=== PATIENT | female | born 1995 | race Caucasian/White ===

== ENCOUNTER 2016-09-10 20:44 | Emergency (ER) | payer MEDICAID ==
[~2016-09-10] VITALS: Ht 170.2 cm; Wt 59.0 kg
[2016-09-10 20:50] VITALS: BP 144/77; PULSE 77; RESP 17; TEMP 98.8; O2SAT 99
--- NOTE | 2016-09-10 20:50 | NUR ---
Patient triaged and placed in waiting room. VSS and patient appears in no acute distress at this time. Accompanied by friend, awaiting available bed, and MD notified of need for MSE.
--- NOTE | 2016-09-10 23:10 | NUR ---
PT IS AOX4, C/O GROIN PAIN JUST TODAY STATED BY THE PT WITH A PAIN SCALEE 8/10. ALSO PT STATED SHE HAD IT BEFORE AFTER SHE LIFTING WEIGHTS.
--- NOTE | 2016-09-10 23:12 | NUR ---
ER at bedside examining patient.
--- NOTE | 2016-09-10 23:15 | NUR ---
Physical examination by ER MD Moy with Sowmya ventura. Patient tolerated well.
[2016-09-11] VITALS: BP 124/65; PULSE 74; RESP 18; TEMP 98.8; O2SAT 99
--- NOTE | 2016-09-11 | NUR ---
Patient given written and verbal discharge instructions and verbalizes understanding. ER MD discussed with patient the results and treatment provided. Patient in stable condition. ID arm band removed. Rx of IBUPROFEN 600 MG given. Patient educated on pain management and to follow up with PMD. Pain Scale 0/10. Opportunity for questions provided and answered.
== END 2016-09-11 | disposition home or self-care (01) ==
LOC: SED 20:44
DX: S39.011A Strain of muscle, fascia and tendon of abdomen, initial encounter (principal); J45.909 Unspecified asthma, uncomplicated; D50.9 Iron deficiency anemia, unspecified; Z88.1 Allergy status to other antibiotic agents; X58.XXXA Exposure to other specified factors, initial encounter; Y93.89 Activity, other specified; Y92.89 Other specified places as the place of occurrence of the external cause; Y99.8 Other external cause status
CPT/HCPCS: 81025; 99283

== ENCOUNTER 2017-03-14 09:59 | Emergency (ER) | payer MEDICAID ==
[~2017-03-14] VITALS: Ht 170.2 cm; Wt 63.5 kg
[2017-03-14 10:20] VITALS: BP_SYST 120
[2017-03-14 10:48] LABS: BILIRUBIN,URINE NEGATIVE (NEGATIVE); BLOOD, URINE 3+ (NEGATIVE); CLARITY/URINE SL CLOUDY (CLEAR); COLOR,URINE YELLOW (YELLOW); GLUCOSE,URINE NEGATIVE (NEGATIVE); KETONES,URINE NEGATIVE (NEGATIVE); LEUKOCYTE ESTERASE ,URINE 2+ (NEGATIVE); NITRITE, URINE NEGATIVE (NEGATIVE); PH,URINE 5.5 (5.0-8.0); PROTEIN URINE 1+ (NEGATIVE); UROBILINOGEN,URINE 0.2 (0.2-1.0)
[2017-03-14 10:55] LABS: BACTERIA,URINE MODERATE /HPF (None Seen); WBC,URINE 50-80 /HPF (0-3)
[2017-03-14 10:57] LABS: BASOPHILS # (AUTO) 0.1 K/uL (0.0-0.2); BASOPHILS % (AUTO) 0.9 % (0.0-2.0); EOSINOPHILS # (AUTO) 0.1 K/uL (0.0-0.4); EOSINOPHILS % (AUTO) 1.8 % (0.0-4.0); HEMATOCRIT 39.7 % (36-48); HEMOGLOBIN 13.2 g/dL (12.0-16.0); LYMPHOCYTES # (AUTO) 1.8 K/uL (1.0-5.5); LYMPHOCYTES % (AUTO) 21.9 % (20.5-51.5); MEAN CORPUSCULAR HEMOGLOBIN 29 pg (27-31); MEAN CORPUSCULAR HGB CONC 33 % (32-36); MEAN CORPUSCULAR VOLUME 86 fL (79.0-98.0); MONOCYTES # (AUTO) 0.6 K/uL (0.0-1.0); MONOCYTES % (AUTO) 7.1 % (1.7-9.3); NEUTROPHILS # (AUTO) 5.4 K/uL (1.8-7.7); NEUTROPHILS % (AUTO) 68.3 % (40.0-70.0); PLATELET COUNT (AUTO) 236 K/uL (130-430); RED BLOOD CELL COUNT(AUTO) 4.64 MIL/uL (4.2-6.2); RED CELL DISTRIBUTION WIDTH 13.6 % (9.0-15.0)
[2017-03-14 11:16] LABS: PROTHROMBIN TIME 10.6 SECS (9.5-12.5)
[2017-03-14 11:20] LABS: CALCIUM 8.6 mg/dL (8.4-11.0); CREATININE 0.88 mg/dL (0.55-1.30); POTASSIUM 4.2 mmol/L (3.5-5.1)
[2017-03-14 11:22] LABS: ALBUMIN 3.9 g/dL (3.4-4.8); TOTAL BILIRUBIN 0.6 mg/dL (0.0-1.0)
[2017-03-14] MEDS ORDERED: NITROFURANTOIN MONOHYD/M-CRYST 100 MG CAPSULE PO SCH (13:00)
[2017-03-14 13:35] VITALS: BP_SYST 118
== END 2017-03-14 13:35 | disposition home or self-care (01) ==
LOC: SED 09:59
DX: N12 Tubulo-interstitial nephritis, not specified as acute or chronic (principal); J45.909 Unspecified asthma, uncomplicated; Z86.2 Personal history of diseases of the blood and blood-forming organs and certain disorders involving the immune mechanism; Z88.1 Allergy status to other antibiotic agents
CPT/HCPCS: 36415; 76801; 76817; 80053; 81000-TC; 81025; 82150-TC; 83690-TC; 84702-TC; 84703; 85025; 85610-TC; 85730-TC; 87086; 87186-TC; 99285

== ENCOUNTER 2018-05-13 19:12 | Emergency (ER) | payer MEDICAID ==
[~2018-05-13] VITALS: Ht 170.2 cm; Wt 71.2 kg
[2018-05-13 19:17] VITALS: BP_SYST 127
[2018-05-13 20:42] LABS: BILIRUBIN,URINE NEGATIVE (NEGATIVE); BLOOD, URINE NEGATIVE (NEGATIVE); CLARITY/URINE CLEAR (CLEAR); COLOR,URINE YELLOW (YELLOW); GLUCOSE,URINE NEGATIVE (NEGATIVE); KETONES,URINE NEGATIVE (NEGATIVE); LEUKOCYTE ESTERASE ,URINE TRACE (NEGATIVE); NITRITE, URINE NEGATIVE (NEGATIVE); PROTEIN URINE NEGATIVE (NEGATIVE); UROBILINOGEN,URINE 0.2 (0.2-1.0)
[2018-05-13 20:51] LABS: BACTERIA,URINE FEW /HPF (None Seen); MUCUS,URINE None Seen /LPF (None Seen); RBC,URINE 0-3 /HPF (0-3); YEAST,URINE Rare /HPF (None Seen)
[2018-05-13 22:58] VITALS: BP_SYST 126
== END 2018-05-13 22:58 | disposition home or self-care (01) ==
LOC: SED 19:12
DX: O21.9 Vomiting of pregnancy, unspecified (principal); O26.891 Other specified pregnancy related conditions, first trimester; R11.0 Nausea; J45.909 Unspecified asthma, uncomplicated; Z88.1 Allergy status to other antibiotic agents; Z3A.11 11 weeks gestation of pregnancy
CPT/HCPCS: 36415; 76801; 81000-TC; 81025; 84702-TC; 84703; 99285

== ENCOUNTER 2018-07-11 17:15 | Observation (INO) | payer MEDICAID ==
[~2018-07-11] VITALS: Ht 170.2 cm; Wt 72.6 kg
[2018-07-11 18:27] LABS: BASOPHILS % (AUTO) 0.5 % (0.0-2.0); EOSINOPHILS # (AUTO) 0.1 K/uL (0.0-0.4); EOSINOPHILS % (AUTO) 1.1 % (0.0-4.0); HEMOGLOBIN 12.6 g/dL (12.0-16.0); LYMPHOCYTES # (AUTO) 1.9 K/uL (1.0-5.5); MEAN CORPUSCULAR HEMOGLOBIN 30 pg (27-31); MEAN CORPUSCULAR HGB CONC 34 % (32-36); MEAN CORPUSCULAR VOLUME 87 fL (79.0-98.0); MONOCYTES # (AUTO) 0.6 K/uL (0.0-1.0); MONOCYTES % (AUTO) 6.7 % (1.7-9.3); NEUTROPHILS # (AUTO) 7.1 K/uL (1.8-7.7); NEUTROPHILS % (AUTO) 71.7 % (40.0-70.0); PLATELET COUNT (AUTO) 256 K/uL (130-430); RED BLOOD CELL COUNT(AUTO) 4.24 MIL/uL (4.2-6.2); RED CELL DISTRIBUTION WIDTH 12.7 % (9.0-15.0); WHITE BLOOD COUNT (AUTO) 9.7 K/uL (4.8-10.8)
[2018-07-11 18:29] LABS: CALCIUM 9.1 mg/dL (8.4-11.0); CREATININE 0.65 mg/dL (0.55-1.30); POTASSIUM 4.4 mmol/L (3.5-5.1)
[2018-07-11 18:34] LABS: TOTAL BILIRUBIN 0.1 mg/dL (0.0-1.0)
== END 2018-07-11 19:00 | disposition home or self-care (01) ==
LOC: SPU 17:15
PROVIDERS: ADMIT Obstetrics & Gynecology; ATTEND Obstetrics & Gynecology
DX: O26.892 Other specified pregnancy related conditions, second trimester (principal); R51 Headache; R53.83 Other fatigue; O13.2 Gestational [pregnancy-induced] hypertension without significant proteinuria, second trimester; H53.9 Unspecified visual disturbance; Z3A.20 20 weeks gestation of pregnancy
CPT/HCPCS: 36415; 80053; 85025; G0378

== ENCOUNTER 2018-09-26 15:14 | Observation (INO) | payer MEDICAID ==
[~2018-09-26] VITALS: Ht 167.6 cm; Wt 59.0 kg
[2018-09-26 15:19] VITALS: BP_SYST 145
[2018-09-26] MEDS ORDERED: DIPHENHYDRAMINE HCL 25 MG CAPSULE PO ONE (15:30)
[2018-09-26 16:30] VITALS: BP_SYST 125
== END 2018-09-26 23:00 | disposition home or self-care (01) ==
LOC: SED 15:14 → SPU 16:30
PROVIDERS: ADMIT Specialist; ATTEND Specialist
DX: O26.893 Other specified pregnancy related conditions, third trimester (principal); T78.49XA Other allergy, initial encounter; Y92.89 Other specified places as the place of occurrence of the external cause; Z3A.31 31 weeks gestation of pregnancy
CPT/HCPCS: 99285; G0378; Q0163; 81002-TC

== ENCOUNTER 2019-01-10 21:22 | Emergency (ER) | payer MEDICAID ==
[~2019-01-10] VITALS: Ht 170.2 cm; Wt 75.3 kg
--- NOTE | 2019-01-10 21:49 | NUR ---
INDIANA Mandujano at bedside examining patient.
[2019-01-10 21:52] VITALS: BP_SYST 135
--- NOTE | 2019-01-10 22:00 | NUR ---
Pt came into ED with Right ear pain that she's had for about a week. Pt states that pain has gotten worse. Pt denies N/V/D. Pt is A&Ox4. Pt states she has a slight headache from the ear pain. Will continue to monitor.
--- NOTE | 2019-01-10 23:19 | NUR ---
Patient to ER bed 08 for evaluation. Side rails up. Report given to Kassidy WALLACE.
--- NOTE | 2019-01-10 23:45 | NUR ---
Note undone in EDM - 01/11/19 at 0120 by JEANMARIEEDVS Pt came into ED with Right ear pain that she's had for about a week. Pt states that pain has gotten worse. Pt denies N/V/D. Pt is A&Ox4. Pt states she has a slight headache from the ear pain. Will continue to monitor.
--- NOTE | 2019-01-11 00:30 | NUR ---
Pt is resting in bed, no acute distress noted at this time.
--- NOTE | 2019-01-11 01:30 | NUR ---
Pt resting in bed, no acute distress noted at this time. Awaiting CT scan results.
--- NOTE | 2019-01-11 02:50 | NUR ---
[facility] recontacted to obtain ETA on CT interpretation
--- NOTE | 2019-01-11 03:52 | NUR ---
Patient given written and verbal discharge instructions and verbalizes understanding. ER MD discussed with patient the results and treatment provided. Patient in stable condition. ID arm band removed. Rx of AZITHROMYCIN given. Patient educated on pain management and to follow up with PMD. Pain Scale 4/10. Opportunity for questions provided and answered. Medication side effect fact sheet provided.
[2019-01-11 03:56] VITALS: BP_SYST 130
== END 2019-01-11 03:56 | disposition home or self-care (01) ==
LOC: SED 21:22
DX: H66.91 Otitis media, unspecified, right ear (principal); J45.909 Unspecified asthma, uncomplicated; Z88.1 Allergy status to other antibiotic agents
CPT/HCPCS: 36415; 70450-TC; 86403; 87081; 99284

== ENCOUNTER 2020-04-01 23:06 | Emergency (ER) | payer MEDICAID ==
[~2020-04-01] VITALS: Ht 170.2 cm; Wt 61.2 kg
[2020-04-01 23:10] VITALS: BP_SYST 132
--- NOTE | 2020-04-01 23:10 | NUR ---
Patient to ER bed 4 to gown for evaluation. Side rails up.
--- NOTE | 2020-04-01 23:11 | NUR ---
pt ambulates to restroom with steady gait to give urine sample.
--- NOTE | 2020-04-01 23:15 | NUR ---
urine collected and sent to lab.
--- NOTE | 2020-04-01 23:20 | NUR ---
PT A&O X4 C/O OF BURING & PAIN WHILE URINATING, INCREASE IN FREQUENCY OF URINATING, FOUL SMELLING URINE, AND LOWER BACK PAIN. PT STATES HER SYMPTOMS BEGAN LAST NIGHT AND HAVE CONTINUED THROUGHOUT TODAY. PT RATES HER PAIN 3 OUT OF 10. PT DENIES NAUSEA, VOMITING, DIARRHEA, CONSTIPATION. PT HX OF UTIS.
--- NOTE | 2020-04-01 23:44 | NUR ---
ER Dr. BUCK at bedside examining patient.
[2020-04-01 23:46] LABS: BILIRUBIN,URINE NEGATIVE (NEGATIVE); CLARITY/URINE CLEAR (CLEAR); COLOR,URINE YELLOW (YELLOW); GLUCOSE,URINE NEGATIVE (NEGATIVE); KETONES,URINE NEGATIVE (NEGATIVE); LEUKOCYTE ESTERASE ,URINE 1+ (NEGATIVE); NITRITE, URINE NEGATIVE (NEGATIVE); PROTEIN URINE NEGATIVE (NEGATIVE); UROBILINOGEN,URINE 0.2 (0.2-1.0)
[2020-04-01 23:59] VITALS: BP_SYST 126
[2020-04-01] MEDS: SULFAMETHOXAZOLE/TRIMETHOPR DS 1 TABLET PO ONE (23:59)
--- NOTE | 2020-04-01 23:59 | NUR ---
Patient given written and verbal discharge instructions and verbalizes understanding. ER MD discussed with patient the results and treatment provided. Patient in stable condition. ID arm band removed. Rx of bactrim given. Patient educated on pain management and to follow up with PMD. Pain Scale 2/10. Opportunity for questions provided and answered. Medication side effect fact sheet provided.
[2020-04-02 00:02] LABS: BLOOD, URINE TRACE (NEGATIVE)
[2020-04-02 00:04] LABS: BACTERIA,URINE FEW /HPF (None Seen)
== END 2020-04-01 23:59 | disposition home or self-care (01) ==
LOC: SED 23:06
DX: N39.0 Urinary tract infection, site not specified (principal); R10.30 Lower abdominal pain, unspecified; J45.909 Unspecified asthma, uncomplicated; Z88.6 Allergy status to analgesic agent
CPT/HCPCS: 81000-TC; 81025; 87086; 99283

== ENCOUNTER 2023-09-25 19:17 | Emergency (ER) | payer BC, MEDICAID ==
[~2023-09-25] VITALS: Ht 170.2 cm; Wt 81.6 kg
[2023-09-25 19:19] VITALS: BP_SYST 139; PULSE 93; RESP 16; O2SAT 99
[2023-09-25] MEDS ORDERED: IBUP-1969 PO (20:24)
[2023-09-25] MEDS ORDERED: HYDR-3917 PO (20:24)
[2023-09-25] MEDS: HYDROcodone/ACETAMIN 10-325 MG TAB PO ONE (20:53)
[2023-09-25] MEDS: IBUPROFEN 800 MG TABLET PO ONE (20:53)
[2023-09-25 21:09] VITALS: BP_SYST 139; PULSE 93; RESP 16; TEMP 98; O2SAT 99
== END 2023-09-25 21:09 | disposition home or self-care (01) ==
LOC: SED 19:17
DX: S93.401A Sprain of unspecified ligament of right ankle, initial encounter (principal); S83.92XA Sprain of unspecified site of left knee, initial encounter; J45.909 Unspecified asthma, uncomplicated; W01.0XXA Fall on same level from slipping, tripping and stumbling without subsequent striking against object, initial encounter; Y93.89 Activity, other specified; Y92.098 Other place in other non-institutional residence as the place of occurrence of the external cause; Y99.8 Other external cause status
CPT/HCPCS: 73564; 99284